=== PATIENT | female | born 1940 | race Caucasian/White ===

== ENCOUNTER → 2020-01-26 | Outpatient (CLI) | payer MEDICARE ==
[~2020-01-26] MED LIST: CALC-47 PO; LEVO75TA5 PO; MULT-449 PO; Vitamin D3 PO; atorvastatin PO
== END | disposition home or self-care (01) ==
LOC: STAR 14:46
PROVIDERS: ATTEND Obstetrics & Gynecology Female Pelvic Medicine and Reconstructive Surgery
DX: Z01.818 Encounter for other preprocedural examination (principal); R10.2 Pelvic and perineal pain; N81.10 Cystocele, unspecified; N39.3 Stress incontinence (female) (male); N95.0 Postmenopausal bleeding; Z20.828 Contact with and (suspected) exposure to other viral communicable diseases
CPT/HCPCS: 87635; 93005

== ENCOUNTER 2020-02-01 05:19 | Day surgery (SDC) | payer MEDICARE ==
[~2020-02-01] VITALS: Ht 147.3 cm; Wt 66.0 kg
[2020-02-01] MEDS ORDERED: CHLORHEXIDINE 15 ML UDC MM ONE (06:00)
[2020-02-01 06:03] VITALS: BP 126/82
[2020-02-01] MEDS ORDERED: LACTATED RINGERS 1,000 ML IV SCH (06:30)
[2020-02-01] MEDS ORDERED: FENTANYL PF 250 MCG/5ML ONE (07:22)
[2020-02-01] MEDS ORDERED: MEPERIDINE/PF 25MG/0.5ML IVPush PRN (07:30)
[2020-02-01] MEDS ORDERED: PROMETHAZINE 25 MG/ML, 1ML IVPush PRN (07:30)
[2020-02-01] MEDS ORDERED: HALOPERIDOL 5 MG/ML IV PRN (07:30)
[2020-02-01] MEDS ORDERED: hydrALAzine 20 MG/ML, 1ML IV PRN (07:30)
[2020-02-01] MEDS ORDERED: FENTANYL PF 100 MCG/2ML IV PRN (07:30)
[2020-02-01] MEDS ORDERED: HYDROcodone/APAP 7.5-325MG/15ML UDC PO PRN (07:30)
[2020-02-01] MEDS ORDERED: DIPHENHYDRAMINE 50 MG/ML, 1ML IVPush PRN (07:30)
[2020-02-01] MEDS ORDERED: LABETALOL 5MG/ML, 20ML IV PRN (07:30)
[2020-02-01] MEDS ORDERED: HYDROmorphone 1 MG/ML, 1ML INJ IVPush PRN (07:30)
[2020-02-01] MEDS ORDERED: GENTAMICIN 80 MG/2 ML ONE ×2 (08:27)
[2020-02-01] MEDS ORDERED: BUPIVACAINE/PF-EPI 0.25% 1:200K INFIL ONE (08:31)
[2020-02-01] MEDS ORDERED: DEXAMETHASONE 4 MG/ML, 1ML ONE (09:04)
[2020-02-01] MEDS ORDERED: NEOSTIGMINE 1 MG/ML, 10ML ONE (09:04)
[2020-02-01] MEDS ORDERED: ROCURONIUM 10MG/ML,5ML ONE (09:04)
[2020-02-01] MEDS ORDERED: ONDANSETRON 2MG/ML, 2ML ONE (09:04)
[2020-02-01] MEDS ORDERED: SUCCINYLCHOLINE 20 MG/ML, 10ML ONE (09:04)
[2020-02-01] MEDS ORDERED: PROPOFOL 10 MG/ML, 20ML ONE ×2 (09:04)
[2020-02-01] MEDS ORDERED: CEFAZOLIN 1,000 MG ONE (09:04)
[2020-02-01] MEDS ORDERED: GLYCOPYRROLATE 0.2MG/1ML, 5ML ONE (09:04)
[2020-02-01] MEDS ORDERED: FENTANYL PF 100 MCG/2ML ONE (10:16)
[2020-02-01] MEDS ORDERED: HYDROcodone/APAP 7.5-325MG/15ML UDC ONE (10:16)
[2020-02-01] MEDS ORDERED: KETOROLAC 30 MG/1 ML ONE (10:37)
[2020-02-01] MEDS ORDERED: PROMETHAZINE 25 MG/ML, 1ML ONE (10:55)
[2020-02-01] MEDS ORDERED: KETOROLAC 30 MG/1 ML IVPush ONE ×3 (11:00)
== END 2020-02-01 14:45 | disposition home or self-care (01) ==
LOC: OUT 05:19
PROVIDERS: ATTEND Obstetrics & Gynecology Female Pelvic Medicine and Reconstructive Surgery
DX: N95.0 Postmenopausal bleeding (principal); N81.89 Other female genital prolapse; N39.46 Mixed incontinence; N81.11 Cystocele, midline; N81.6 Rectocele; N81.5 Vaginal enterocele; N88.8 Other specified noninflammatory disorders of cervix uteri; N94.89 Other specified conditions associated with female genital organs and menstrual cycle; N83.312 Acquired atrophy of left ovary; N83.311 Acquired atrophy of right ovary; E78.5 Hyperlipidemia, unspecified; E03.9 Hypothyroidism, unspecified; Z79.890 Hormone replacement therapy; Z79.899 Other long term (current) drug therapy; Z98.890 Other specified postprocedural states
CPT/HCPCS: 57265; 57282; 57288; 58552; 88307; C1771; J0171; J0330; J0690; J1100; J1580; J1885; J1940; J2405; J2550; J2704; J2710; J3010; J7120